=== PATIENT | male | born 1950 | race Caucasian/White ===

== ENCOUNTER 2017-12-08 06:04 | Day surgery (SDC) | payer MEDICARE ==
[2017-12-08] MEDS ORDERED: DIPRIVAN 200 MG/20 ML IV ONE (06:05)
[2017-12-08] MEDS ORDERED: Lactated Ringers 1,000 ML IV SCH (06:30)
--- NOTE | 2017-12-08 07:55 | OP ---
SURGERY DATE/TIME: 12/08/2017 0729 PREOPERATIVE DIAGNOSIS: Epigastric pain. POSTOPERATIVE DIAGNOSES: 1) Mild gastritis. 2) Leukoplakia of the vocal cords. PROCEDURE: Esophagogastroduodenoscopy with biopsy. SURGEON: Dr. Arias. ANESTHESIA: Medications were given by the anesthesia department. BRIEF HISTORY: The patient is a 67 year-old white male patient presenting now for endoscopic evaluation. He reports he has been having problems with abdominal pain which is now more epigastric in area. The patient is felt to need to have endoscopic evaluation. He was appraised of the risks of the procedure including the risk of perforation, phlebitis, untoward reaction to medication, bleeding and missed lesions. The patient verbalized his understanding and desired to have the procedure performed. DESCRIPTION OF PROCEDURE: The patient was given the medications by the anesthesia department. He had continuous pulse oximetry, ECG monitoring, intermittent blood pressure monitoring and tidal CO2 monitoring during the examination. He was placed in the left lateral decubitus position. A bite block was placed and the flexible Olympus gastroscope was used to intubate the oropharynx. A view of the larynx is obtained and showed an area of what appeared to be leukoplakia on the vocal cord and this is photo documented. The scope was easily introduced in the esophagus which appeared to be normal throughout its length. The stomach was entered where normal gastric rugal folds were seen and these distended nicely with insufflation of air. The scope was passed along the greater curvature of the stomach to the antrum. The pylorus was encountered and intubated. The duodenum was inspected and found to be normal. The scope is withdrawn towards the stomach. A retroflex view was obtained of the lesser curvature, fundus and cardia regions of the stomach and these appeared normal. The scope was then redirected towards the gastric antrum and biopsies were obtained to rule out the presence of Helicobacter pylori-type organisms. The scope was then removed from the patient who tolerated the procedure well and sent back to outpatient recovery in good condition.
[2017-12-08 08:27] VITALS: O2SAT 96
[2017-12-08 08:44] VITALS: BP 145/84; PULSE 61
== END 2017-12-08 08:45 | disposition home or self-care (01) ==
LOC: SDC 06:04
PROVIDERS: ATTEND Family Medicine
DX: K29.70 Gastritis, unspecified, without bleeding (principal); R10.13 Epigastric pain; J38.3 Other diseases of vocal cords
CPT/HCPCS: 88305; 88342; J2704

== ENCOUNTER 2017-12-15 10:43 | Inpatient (IN) | payer MEDICARE ==
[2017-12-15 11:52] LABS: BASOPHIL % 0.1 % (0.0-0.4); Basophil (Absolute #) 0.01 (0-0.4); Eosinophil (Absolute #) 0 (0-0.5); Granulocyte Absolute (ANC) 10.08 (1.4-6.9); Granulocytes % 94.2 % (36.0-66.0); Hematocrit 46.6 % (42-50); Hemoglobin 15.6 gm/dl (12.5-18.0); Lymphocyte (Absolute #) 0.28 (1.0-4.6); Lymphocytes % 2.6 % (24.0-44.0); Mean Cell Volume 95.9 fl (78-100); Mean Corpuscular Hemoglobin 32.1 pg (26-32); Mean Corpuscular Hgb Concent. 33.5 g/dl (32-36); Mean Platelet Volume 9.9 fl (6-9.5); Monocyte (Absolute #) 0.33 (0.0-1.3); Monocytes % 3.1 % (0.0-12.0); Platelet Count 201 K/mm3 (150-450); Red Blood Count 4.86 M/mm3 (4.1-5.6); Red Cell Distribution Width 13.9 % (11.5-14.0); White Blood Count 10.7 K/mm3 (4.0-10.5)
[2017-12-15] MEDS: TYLENOL EXTRA STRENGTH 500 MG PO PRN ×2 (12:00→16:13)
[2017-12-15] MEDS: D5W/0.45NS W/ 20mEq KCl 1000 ML 1,000 ML IV SCH ×2 (12:02→22:11)
[2017-12-15] MEDS: ROCEPHIN 1 Gm-D5w 50 ml Bag** 1 G/50 ML IVPB IV SCH (12:02)
[2017-12-15] MEDS: Zithromax 500 MG/ 250 ML NaCl Premix 500 MG/250 ML IVPB IV SCH (12:02)
--- NOTE | 2017-12-15 12:12 | XRAY ---
Indication: Chills. Flow symptoms. Comparison: November 02, 2011. PA/lateral chest remains hyperinflated and clear. Heart and mediastinal structures are stable and within normal limits again with left hilar calcified nodes. Bony thorax intact again with mild degenerative changes. Impression: Stable nonacute hyperinflated chest with chronic features.
[2017-12-15 12:25] LABS: ALBUMIN 4.2 g/dL (3.5-5.0); ALKALINE PHOSPHATASE 120 U/L (38-126); ANION GAP 14.4 MEQ/L (5-15); BLOOD UREA NITROGEN 18 mg/dL (9-20); CHLORIDE 103 mmol/L (98-107); Calcium 9.4 mg/dL (8.4-10.2); Carbon Dioxide 25 mmol/L (22-30); Creatinine 1 0.95 mg/dL (0.66-1.25); Glucose 113 mg/dL (74-106); Potassium 3.8 mmol/L (3.5-5.1); SGOT/AST 33 U/L (17-59); SGPT/ALT 24 U/L (0-50); SODIUM 138 mmol/L (137-145); Total Protein 7.7 g/dL (6.3-8.2)
[2017-12-15 13:06] LABS: INFLUENZA A NEGATIVE (NEGATIVE); INFLUENZA B NEGATIVE (NEGATIVE); RESPIRATORY SYNCTIAL VIRUS NEGATIVE (Negative)
[2017-12-15] MEDS: MOTRIN 600 MG PO PRN (13:55)
[2017-12-15] MEDS: Lotensin 10 MG PO SCH (15:17)
[2017-12-15] MEDS: Protonix 40MG Tablet PO SCH (15:17)
[2017-12-15 16:26] LABS: Appearance CLEAR (CLEAR); Leukocyte Esterase TRACE (NEGATIVE); Nitrite NEGATIVE (NEGATIVE); Specific Gravity 1.015 (1.005-1.025)
[2017-12-15 16:27] LABS: Bacteria MODERATE /HPF (NEGATIVE); Bilirubin NEGATIVE (NEGATIVE); Glucose NEGATIVE (NEGATIVE); Hyaline Casts 0-2 /LPF (0-2); Ketones MODERATE (NEGATIVE); Mucus MODERATE /HPF (NEGATIVE); Protein,Urine Dip TRACE (Negative); Urobilinogen NORMAL mg/dL (0-1); WBC 0-2 /HPF (0-5)
[2017-12-15] MEDS ORDERED: Nicoderm CQ 21 MG TOP SCH (17:30)
[2017-12-15] MEDS ORDERED: Ambien 5 MG Tablet PO PRN (19:27)
[2017-12-16] MEDS: D5W/0.45NS W/ 20mEq KCl 1000 ML 1,000 ML IV SCH ×2 (06:18→15:35)
[2017-12-16] MEDS: ROCEPHIN 1 Gm-D5w 50 ml Bag** 1 G/50 ML IVPB IV SCH (09:23)
[2017-12-16] MEDS: Lotensin 10 MG PO SCH (09:24)
[2017-12-16] MEDS: Protonix 40MG Tablet PO SCH (09:24)
--- NOTE | 2017-12-16 10:43 | PCM.NOTE ---
Date and Time: 12/16/17 1023 Subjective Assessment: He was seen yesterday in clinic by Dr. Elizondo for follow up on his EGD that was done 8 days ago. He did well initially but on after the egd on Monday developed chills and shakes on night and these resolved Monday before returning Monday morning and he was feeling weak and chilled and shaking and came to his appointment with Dr. Elizondo and was found to have temperature to 104 per patient and was sent for direct admission. He was given tylenol and motrin as well as ceftriaxone and azithromycin. HIs wbc was slightly elevated and blood cultures returned this am positive for gram negative rods. He has been feeling well and afebrile since arrival. He wants to go home. He has no urinary symptoms, abdominal pain now nausea or any skin lesions. He has no previous hospitalizations and has not had any recent food born illnesses suspected or tick bites. He does smoke 2 ppd and drinks significant amount of beer every day. He did have a headache with the chills on Monday but none since and no stiff neck with this. - Review of Systems Constitutional: Fever Eyes: No Symptoms Ears, Nose, & Throat: No Symptoms Respiratory: No Cough, No Short Of Breath Cardiac: No Chest Pain, No Edema, No Syncope Abdominal/Gastrointestinal: No Abdominal Pain, No Nausea, No Vomiting, No Diarrhea Genitourinary Symptoms: No Dysuria Musculoskeletal: No Back Pain, No Neck Pain Skin: No Rash Neurological: No Dizziness, No Focal Weakness, No Sensory Changes Psychological: No Symptoms Endocrine: No Symptoms Hematologic/Lymphatic: No Symptoms Immunological/Allergic: No Symptoms Objective Exam General Appearance: no apparent distress, alert Neurologic Exam: alert, oriented x 3, cooperative, normal mood/affect, nml cerebellar function, sensation nml, No motor deficits Skin Exam: normal color, warm, dry Eye Exam: PERRL, EOMI, eyes nml inspection Ears, Nose, Throat Exam: normal ENT inspection, pharynx normal, moist mucous membranes Neck Exam: normal inspection, non-tender, supple, full range of motion Respiratory Exam: normal breath sounds, lungs clear, No respiratory distress Cardiovascular Exam: regular rate/rhythm, normal heart sounds Gastrointestinal/Abdomen Exam: soft, No tenderness, No mass Extremity Exam: normal inspection, normal range of motion Back Exam: normal inspection, normal range of motion, No CVA tenderness, No vertebral tenderness Male Genitalia Exam: deferred Rectal Exam: deferred OBJECTIVE DATA Vital Signs: Vital Signs - 24 hr Temp Pulse Resp BP Pulse Ox 12/16/17 07:15 97.7 F 63 17 134/75 97 12/16/17 04:00 97.5 F 57 L 18 130/74 96 12/15/17 23:45 97.7 F 64 18 125/78 97 12/15/17 20:00 98.0 F 67 19 114/60 96 12/15/17 19:23 61 18 94 L 12/15/17 16:00 97.8 F 72 18 110/61 93 L 12/15/17 11:40 93 H 20 95 12/15/17 11:23 99.8 F 84 18 160/77 95 12/15/17 11:15 99.8 F 84 18 160/77 95 Pain Assessment - Last Documented Pain Scale Used 0-10 Pain Scale Intake and Output: Intake & Output 12/13/17 12/14/17 12/15/17 12/16/17 11:59 11:59 11:59 11:59 Intake Total 3242 Output Total 980 Balance 2262 Weight 71.7 kg Lab Results: Lab Results-Last 24 Hours 12/15/17 12/15/17 12/15/17 Range/Units 11:10 11:10 11:10 WBC 10.7 H (4.0-10.5) K/mm3 RBC 4.86 (4.1-5.6) M/mm3 Hgb 15.6 (12.5-18.0) gm/dl Hct 46.6 (42-50) % MCV 95.9 (78-100) fl MCH 32.1 H (26-32) pg MCHC 33.5 (32-36) g/dl RDW 13.9 (11.5-14.0) % Plt Count 201 (150-450) K/mm3 MPV 9.9 H (6-9.5) fl Gran % 94.2 H (36.0-66.0) % Eos # (Auto) 0 (0-0.5) Absolute Lymphs (auto) 0.28 L (1.0-4.6) Absolute Monos (auto) 0.33 (0.0-1.3) Lymphocytes % 2.6 L (24.0-44.0) % Monocytes % 3.1 (0.0-12.0) % Eosinophils % 0.0 (0.00-5.0) % Basophils % 0.1 (0.0-0.4) % Absolute Granulocytes 10.08 H (1.4-6.9) Basophils # 0.01 (0-0.4) Sodium (137-145) mmol/L Potassium (3.5-5.1) mmol/L Chloride (98-107) mmol/L Carbon Dioxide (22-30) mmol/L Anion Gap (5-15) MEQ/L BUN (9-20) mg/dL Creatinine (0.66-1.25) mg/dL Estimated GFR ML/MIN Glucose (74-106) mg/dL Lactic Acid (0.4-2.0) Calcium (8.4-10.2) mg/dL Total Bilirubin (0.2-1.3) mg/dL AST (17-59) U/L ALT (0-50) U/L Alkaline Phosphatase (38-126) U/L Serum Total Protein (6.3-8.2) g/dL Albumin (3.5-5.0) g/dL Ur Collection Type Urine Color (YELLOW) Urine Appearance (CLEAR) Urine pH (5-6) Ur Specific [place] (1.005-1.025) Urine Protein (Negative) Urine Ketones (NEGATIVE) Urine Blood (0-5) Georges/ul Urine Nitrite (NEGATIVE) Urine Bilirubin (NEGATIVE) Urine Urobilinogen (0-1) mg/dL Ur Leukocyte Esterase (NEGATIVE) Urine Microscopic RBC (0-2) /HPF Urine Microscopic WBC (0-5) /HPF Urine Bacteria (NEGATIVE) /HPF Hyaline Casts (0-2) /LPF Urine Mucus (NEGATIVE) /HPF Urine Glucose (NEGATIVE) mg/dL Influenza Type A Ag NEGATIVE (NEGATIVE) Influenza Type B Ag NEGATIVE (NEGATIVE) RSV (PCR) NEGATIVE (Negative) Streptococcus Screen NEGATIVE (Negative) Slides for Path Review Specimen Received 12/15/17 12/15/17 12/15/17 Range/Units 11:15 11:25 11:50 WBC (4.0-10.5) K/mm3 RBC (4.1-5.6) M/mm3 Hgb (12.5-18.0) gm/dl Hct (42-50) % MCV (78-100) fl MCH (26-32) pg MCHC (32-36) g/dl RDW (11.5-14.0) % Plt Count (150-450) K/mm3 MPV (6-9.5) fl Gran % (36.0-66.0) % Eos # (Auto) (0-0.5) Absolute Lymphs (auto) (1.0-4.6) Absolute Monos (auto) (0.0-1.3) Lymphocytes % (24.0-44.0) % Monocytes % (0.0-12.0) % Eosinophils % (0.00-5.0) % Basophils % (0.0-0.4) % Absolute Granulocytes (1.4-6.9) Basophils # (0-0.4) Sodium 138 (137-145) mmol/L Potassium 3.8 (3.5-5.1) mmol/L Chloride 103 (98-107) mmol/L Carbon Dioxide 25 (22-30) mmol/L Anion Gap 14.4 (5-15) MEQ/L BUN 18 (9-20) mg/dL Creatinine 0.95 (0.66-1.25) mg/dL Estimated GFR > 60.0 ML/MIN Glucose 113 H (74-106) mg/dL Lactic Acid 1.5 (0.4-2.0) Calcium 9.4 (8.4-10.2) mg/dL Total Bilirubin 0.90 (0.2-1.3) mg/dL AST 33 (17-59) U/L ALT 24 (0-50) U/L Alkaline Phosphatase 120 (38-126) U/L Serum Total Protein 7.7 (6.3-8.2) g/dL Albumin 4.2 (3.5-5.0) g/dL Ur Collection Type CLEAN CATCH Urine Color YELLOW (YELLOW) Urine Appearance CLEAR (CLEAR) Urine pH 5.0 (5-6) Ur Specific [place] 1.015 (1.005-1.025) Urine Protein TRACE (Negative) Urine Ketones MODERATE (NEGATIVE) Urine Blood 5-10 (0-5) Georges/ul Urine Nitrite NEGATIVE (NEGATIVE) Urine Bilirubin NEGATIVE (NEGATIVE) Urine Urobilinogen NORMAL (0-1) mg/dL Ur Leukocyte Esterase TRACE (NEGATIVE) Urine Microscopic RBC 2-5 (0-2) /HPF Urine Microscopic WBC 0-2 (0-5) /HPF Urine Bacteria MODERATE (NEGATIVE) /HPF Hyaline Casts 0-2 (0-2) /LPF Urine Mucus MODERATE (NEGATIVE) /HPF Urine Glucose NEGATIVE (NEGATIVE) mg/dL Influenza Type A Ag (NEGATIVE) Influenza Type B Ag (NEGATIVE) RSV (PCR) (Negative) Streptococcus Screen (Negative) Slides for Path Review Specimen Received 12/15/17 1620 Radiology Exams: Radiology Procedures Category Date Time Status CHEST 2 VIEWS (PA AND LAT) Routine Exams 12/15/17 11:41 Completed Assessment/Plan (1) Bacteremia Status: Acute Assessment & Plan: he is feeling well today and his physical exam is unremarkable. source of gram negative bacteremia is unclear but currently asymptomatic will continue iv antibiotics and await identification of organism and pursue further evaluation to source pending ID Code(s): R78.81 - BACTEREMIA (2) Tobacco dependence Status: Acute Assessment & Plan: encouraged cessation treated with nicotine patch while here Code(s): F17.200 - NICOTINE DEPENDENCE, UNSPECIFIED, UNCOMPLICATED (3) History of heavy alcohol consumption Status: Acute Assessment & Plan: use of prn alprazolam while inpatient to help prevent his cravings and potential withdrawal symptoms Code(s): Z87.898 - PERSONAL HISTORY OF OTHER SPECIFIED CONDITIONS
[2017-12-16] MEDS ORDERED: xanAX 0.5 MG PO PRN (10:47)
[2017-12-16] MEDS ORDERED: Nicoderm CQ 21 MG TOP SCH (10:54)
[2017-12-16] MEDS: Zithromax 500 MG/ 250 ML NaCl Premix 500 MG/250 ML IVPB IV SCH (10:59)
[2017-12-16] MEDS ORDERED: MELATONIN 1 MG PO PRN (16:25)
[2017-12-16] MEDS: PATIENT OWN MEDICATION PO PRN ×2 (17:19→20:19)
[2017-12-16] MEDS: MOTRIN 600 MG PO PRN (23:21)
[2017-12-17] MEDS: D5W/0.45NS W/ 20mEq KCl 1000 ML 1,000 ML IV SCH (00:16)
[2017-12-17 06:58] VITALS: O2SAT 94
[2017-12-17] MEDS: Zithromax 500 MG/ 250 ML NaCl Premix 500 MG/250 ML IVPB IV SCH (09:40)
[2017-12-17] MEDS: Lotensin 10 MG PO SCH (09:40)
[2017-12-17] MEDS: Protonix 40MG Tablet PO SCH (09:40)
--- NOTE | 2017-12-17 10:47 | PCM.DCORD ---
- Discharge Discharge Date: 12/17/17 Disposition: Home, Self-Care Condition: Stable Prescriptions: New Levofloxacin [Levaquin] 500 mg PO 14 #14 tablet Continue Pantoprazole Sodium [Protonix] 40 mg PO DAILY Benazepril HCl 10 mg [Lotensin 10 MG] 10 mg PO DAILY Additional Instructions: My office will be calling him to schedule his CT of his abdomen and pelvis ok to d/c home after Rocephin Follow up with: JALEESA SWANN [Primary Care Provider] - 1 Week
[2017-12-17] MEDS: ROCEPHIN 1 Gm-D5w 50 ml Bag** 1 G/50 ML IVPB IV SCH (10:57)
[2017-12-17 11:38] VITALS: BP 138/65; PULSE 80
--- NOTE | 2017-12-17 17:26 | PCM.DS ---
Discharge Summary Date of Admission: 12/16/17 10:48 Date of Discharge: 12/17/17 Admitting Physician: JALEESA ARIAS Primary Care Provider: JALEESA ARIAS Allergies Allergies Sulfa (Sulfonamide Antibiotics) [Sulfa(Sulfonamide Antibiotics)] Allergy ( Verified 12/07/17 15:01) Hospital Summary - Hospital Course Hospital Course: He was admitted from the clinic by Dr. Arias where he was being seen for follow up on his EGD that was done 7 days prior to presentation, but was found to have a high fever and chills at the appointment. He did well initially after the egd on Monday but then developed chills and shakes on Monday night and these resolved Monday before returning Monday morning and he was feeling weak and chilled and shaking and came to his appointment with Dr. Arias and was found to have temperature to 104 per patient and was sent for direct admission. He was given Tylenol and motrin as well as ceftriaxone and azithromycin. His fever resolved after the initial and he remained afebrile for >48 hours. His wbc was slightly elevated and blood cultures returned positive for pansensitive e. coli. He has been feeling well and afebrile since arrival. He wants to go home. He has no heart murmur, urinary symptoms, abdominal pain, diarrhea, nausea or any skin lesions. He has no previous hospitalizations and has not had any recent food born illnesses suspected or tick bites. He does smoke 2 ppd and drinks significant amount of beer every day. We discussed further evaluation for source of infection and recommend abd/pelvis CT with contrast to rule out occult abscess but he prefers to have this done as an outpatient as he states it will be cheaper for him this way. Given he has clinically been well since arrival this will be arranged and will d/c home on levaquin for the E. coli for 14 day coarse pending evaluation for the source. - Vitals & Intake/Output Vital Signs: Vital Signs Temperature 97.7 F 12/17/17 11:37 Pulse Rate 80 12/17/17 11:37 Respiratory Rate 18 12/17/17 11:37 Blood Pressure 138/65 12/17/17 11:37 O2 Sat by Pulse Oximetry 94 L 12/17/17 11:37 Intake & Output: Intake & Output 12/15/17 12/16/17 12/17/17 12/18/17 11:59 11:59 11:59 11:59 Intake Total 1116 6242 973 Output Total 723 600 Balance 6861 6101 973 Weight 71.7 kg - Lab Result Diagrams: 12/15/17 11:10 12/15/17 11:50 Lab Results-Last 24 Hrs: Lab Results-Last 24 Hours 12/15/17 12/15/17 Range/Units 11:25 11:50 Sodium 138 (137-145) mmol/L Potassium 3.8 (3.5-5.1) mmol/L Chloride 103 (98-107) mmol/L Carbon Dioxide 25 (22-30) mmol/L Anion Gap 14.4 (5-15) MEQ/L BUN 18 (9-20) mg/dL Creatinine 0.95 (0.66-1.25) mg/dL Estimated GFR > 60.0 ML/MIN Glucose 113 H (74-106) mg/dL Lactic Acid 1.5 (0.4-2.0) Calcium 9.4 (8.4-10.2) mg/dL Total Bilirubin 0.90 (0.2-1.3) mg/dL AST 33 (17-59) U/L ALT 24 (0-50) U/L Alkaline Phosphatase 120 (38-126) U/L Serum Total Protein 7.7 (6.3-8.2) g/dL Albumin 4.2 (3.5-5.0) g/dL Micro Results-Entire Visit: Microbiology 12/15/17 11:10 Throat Culture - Final Throat BETA STREP ISOLATED, NOT GROUP A. 12/15/17 11:50 Blood Culture Gram Stain - Final Blood Blood Culture - Final SEE PREVIOUS CULTURE FOR IDENTIFICATION AND SENSITIVITY. 12/15/17 11:50 Blood Culture Gram Stain - Final Blood Blood Culture - Final Escherichia Coli - Procedures and Test Procedures and Tests throughout Hospitalization: Therapy Orders & Screens 12/15/17 11:40 Smoking Cessation Education ONCE Comment: Diagnosis: Fever unknown origin, chills Smoking Status: Heavy tobacco smoker How long have you smoked: 55 years Have you smoked in the past 12 months: Yes Approximately how many cigarettes per day: 44 Do you dip or chew tobacco: No Discharge Exam General Appearance: no apparent distress, alert Neurologic Exam: alert, oriented x 3, cooperative, normal mood/affect, nml cerebellar function, sensation nml, No motor deficits Skin Exam: normal color, warm, dry, No rash, No petechiae, No jaundice, No embolic lesions, No ecchymosis, No jaundice Eye Exam: PERRL, EOMI, eyes nml inspection Ears, Nose, Throat Exam: normal ENT inspection, pharynx normal, moist mucous membranes Neck Exam: normal inspection, non-tender, supple, full range of motion Respiratory Exam: normal breath sounds, lungs clear, No respiratory distress Cardiovascular Exam: regular rate/rhythm, normal heart sounds Gastrointestinal/Abdomen Exam: soft, No tenderness, No mass Extremity Exam: normal inspection, normal range of motion Back Exam: normal inspection, normal range of motion, No CVA tenderness, No vertebral tenderness Male Genitalia Exam: deferred Rectal Exam: deferred Final Diagnosis/Problem List - Final Discharge Diagnosis/Problem (1) E coli bacteremia Status: Acute (2) Tobacco dependence Status: Acute (3) History of heavy alcohol consumption Status: Acute - Discharge Discharge Date: 12/17/17 Disposition: Home, Self-Care Condition: Stable Prescriptions: New Levofloxacin [Levaquin] 500 mg PO 14 #14 tablet Continue Pantoprazole Sodium [Protonix] 40 mg PO DAILY Benazepril HCl 10 mg [Lotensin 10 MG] 10 mg PO DAILY Instructions: Sepsis in Adults Additional Instructions: My office will be calling him to schedule his CT of his abdomen and pelvis ok to d/c home after Rocephin Follow up with: JALEESA ARIAS [Primary Care Provider] - 1 Week Forms: Discharge Instructions
== END 2017-12-17 12:00 | disposition home or self-care (01) | DRG 872 ==
LOC: MED SURG 10:48 → OBSVTOIN 12-16 10:48
PROVIDERS: ADMIT Family Medicine; ATTEND Family Medicine
DX: R78.81 Bacteremia (principal); B96.20 Unspecified Escherichia coli [E. coli] as the cause of diseases classified elsewhere; F17.200 Nicotine dependence, unspecified, uncomplicated; Z87.898 Personal history of other specified conditions; Z79.899 Other long term (current) drug therapy
CPT/HCPCS: 36415; 71046; 80053; 81000; 83605; 85025; 87040; 87070; 87077; 87186; 87430; 87631; 94760; G0378; J0456; J0696; A9270-GY

== ENCOUNTER 2020-09-18 15:19 | Emergency (ER) | payer MEDICARE, OTHER ==
[2020-09-18 15:34] VITALS: BP 139/75; PULSE 77; O2SAT 98
--- NOTE | 2020-09-18 15:55 | ERPHSYRPT ---
- History of Present Illness Time Seen by Provider: 09/18/20 15:28 Source: patient Exam Limitations: no limitations Patient Subjective Stated Complaint: Pt had a laser surgery on the prostate yesterday and a barreto was placed and was told to remove it today, pt removed it and has been unable to urinate since Triage Nursing Assessment: Pt was brought to the ER by his , travis gil, rates pain 8/10, unable to urinate since this AM, no other issues at this time Physician History: 69 years old status post TURP laser prostatectomy yesterday presented in the ER with urinary retention. Patient report he removed his catheter placed and while surgery yesterday at this morning and since then he is unable to go. Complaining of dull aching to sharp pain in the suprapubic area, arch to go but cannot. Called his urologist who recommended coming to ER and have another Barreto catheter placed in. He is currently on antibiotics. Timing/Duration: today, sudden, worse Activites at Onset: rest Quality: sharpness Onset Location: suprapubic Pain Radiation: none Severity of Pain-Max: moderate Severity of Pain-Current: moderate Modifying Factors: Worsens With: movement, palpation Associated Symptoms: denies symptoms Prior abdominal problems: none Sexual intercourse history: non-contributory Allergies/Adverse Reactions: levofloxacin [From Levaquin] Allergy (Verified 09/18/20 15:35) prednisone Allergy (Verified 09/18/20 15:35) Sulfa (Sulfonamide Antibiotics) [Sulfa(Sulfonamide Antibiotics)] Allergy (Verified 09/18/20 15:35) Home Medications: Pantoprazole Sodium [Protonix] 40 mg PO DAILY 11/10/11 [History] Benazepril HCl 10 mg [Lotensin 10 MG] 20 mg PO DAILY 12/07/17 [History] Amlodipine Besylate 5 mg [Norvasc 5 mg] 5 mg PO DAILY 09/18/20 [History] Montelukast Sodium 10 mg [Singulair 10 MG] 10 mg PO DAILY 09/18/20 [History] Travel Risk - International Travel Have you traveled outside of the country in past 3 weeks: No - Coronavirus Screening Are you exhibiting any of the following symptoms?: No Close contact with a COVID-19 positive Pt in past 14-21 Days: No - Past Medical History Pertinent Past Medical History: Yes Neurological History: Migraines ENT History: No Pertinent History Cardiac History: Hypertension Respiratory History: COPD, Pneumonia, Other Endocrine Medical History: No Pertinent History Musculoskeletal History: Fibromyalgia, Osteoarthritis GI Medical History: GERD, Hemorrhoids, Irritable Bowel History: No Pertinent History Psycho-Social History: No Pertinent History Male Reproductive Disorders: No Pertinent History - Past Surgical History Past Surgical History: Yes Neuro Surgical History: No Pertinent History Cardiac: No Pertinent History Respiratory: No Pertinent History Gastrointestinal: Hernia Repair, Other Genitourinary: No Pertinent History Musculoskeletal: Other Male Surgical History: No Pertinent History Other Surgical History: left thumb repair. hx upper gi x1. benign tumor removed from left neck - Social History Smoking Status: Heavy tobacco smoker How long have you smoked: 55 years Exposure to second hand smoke: Yes Drug Use: none Patient Lives Alone: No - Review of Systems Constitutional: No Symptoms Eyes: No Symptoms Ears, Nose, & Throat: No Symptoms Respiratory: No Symptoms Cardiac: No Symptoms Abdominal/Gastrointestinal: Abdominal Pain Genitourinary Symptoms: Urinary Retention Musculoskeletal: No Symptoms Skin: No Symptoms Neurological: No Symptoms Psychological: No Symptoms Endocrine: No Symptoms - Nursing Vital Signs Nursing Vital Signs: Initial Vital Signs Temperature 97.7 F 09/18/20 15:26 Pulse Rate 77 09/18/20 15:26 Blood Pressure 139/75 09/18/20 15:26 O2 Sat by Pulse Oximetry 98 09/18/20 15:26 Pain Scale Pain Intensity 8 - Physical Exam General Appearance: no apparent distress, alert Eye Exam: eyes nml inspection Ears, Nose, Throat Exam: pharynx normal Neck Exam: normal inspection, supple, full range of motion Respiratory Exam: normal breath sounds, lungs clear Cardiovascular Exam: regular rate/rhythm, normal heart sounds Gastrointestinal/Abdomen Exam: soft, normal bowel sounds, tenderness (Suprapubic area with palpable bladder) Male Genital Exam: normal genitalia, No scrotum tenderness (R), No scrotum tenderness (L), No testicular tenderness (R), No testicular tenderness (L), No urethral discharge, No circumcised Back Exam: normal inspection Extremity Exam: normal inspection Neurologic Exam: alert, oriented x 3, cooperative Skin Exam: normal color SpO2 Interpretation: normal SpO2: 98 O2 Delivery: Room Air Ordered Tests: Active Orders 24 hr Category Date Time Status Barreto [Catheter-[place] Barreto] STAT Care 09/18/20 15:40 Active - Progress Progress: improved Progress Note: 09/18/20 15:54 Barreto catheter is placed in with drainage of urine and patient has immediate relief of pain. Will leave catheter in place and patient is advised to call his urologist and go per his recommendations. Counseled pt/family regarding: lab results, diagnosis, need for follow-up - Departure Departure Disposition: Home Clinical Impression: Postoperative urinary retention Condition: Stable Critical Care Time: No Referrals: JALEESA SWANN [Primary Care Provider] - Follow Up with PCP/3 days Instructions: Urinary Retention (DC) Additional Instructions: Call your urologist and follow his recommendation for catheter removal. Take Tylenol as needed for pain. Return to ER if has difficulty drainage of urine again.
== END 2020-09-18 16:14 | disposition home or self-care (01) ==
LOC: ED 15:19
DX: R33.8 Other retention of urine (principal); Z98.890 Other specified postprocedural states
CPT/HCPCS: 51702; 99284

== ENCOUNTER 2023-03-16 06:33 | Day surgery (SDC) | payer MEDICARE ==
--- NOTE | 2023-03-09 11:57 | HP ---
DATE OF SURGERY: 03/16/2023 HISTORY OF PRESENT ILLNESS: The patient is a 72-year-old male presented with some gallbladder attacks. Symptoms have lasted up to two to three days at a time. He has been experiencing more frequent attacks. He did change his diet a little bit and it helped some. It looked like he had some stones on his ultrasound. PAST MEDICAL HISTORY: Hypertension, heart disease, asthma, glaucoma, fibromyalgia. PAST SURGICAL HISTORY: Hernia repair. Lipoma removal. ALLERGIES: BETA-ELIA. LEVAQUIN. SULFA. PREDNISONE. MEDICATIONS: Latanoprost, Pepcid, amlodipine, Benazepril, Singulair, albuterol, naproxen. FAMILY HISTORY: None reported. SOCIAL HISTORY: Current every day smoker. REVIEW OF SYSTEMS: CONSTITUTIONAL: Denies fever or chills. CHEST: Denies shortness of breath. CVS: Denies chest pain. ABDOMEN: Reports abdominal pain. PHYSICAL EXAMINATION: GENERAL: No acute distress. CHEST: Nonlabored. No shortness of breath. CVS: Regular rate and rhythm. ABDOMEN: Soft. IMPRESSION: Chronic cholecystitis with sludge. PLAN: Laparoscopic cholecystectomy with Dr. Nilo Mathur. As dictated by Chloe Ford NP.
[2023-03-16] MEDS ORDERED: Sensorcaine 0.25% 10 ML ONE (06:34)
[2023-03-16] MEDS ORDERED: Lactated Ringers 1,000 ML IV SCH (07:00)
[2023-03-16] MEDS ORDERED: MEFOXIN 2 GM PREMIX** 2 GM/50 ML ML IV SCH (07:00)
[2023-03-16 07:34] VITALS: RESP 18
[2023-03-16] MEDS ORDERED: DIPRIVAN 200 MG/20 ML IV ONE (08:00)
[2023-03-16] MEDS ORDERED: Xylocaine-Mpf 2% 5 Ml Vial ONE (08:01)
[2023-03-16] MEDS ORDERED: SUBLIMAZE 100 MCG/2 ML ONE ×2 (08:09→08:13)
[2023-03-16] MEDS ORDERED: Decadron 4 MG INJ ONE (09:10)
[2023-03-16] MEDS ORDERED: Ephedrine Sulfate 50 MG/ML ONE (09:10)
[2023-03-16] MEDS ORDERED: Zofran 4 MG/2 ML VIAL ONE (09:10)
[2023-03-16] MEDS ORDERED: BRIDION 200MG/2ML IV ONE (09:10)
[2023-03-16] MEDS ORDERED: TORAdol 30 mg Injection ONE (09:32)
[2023-03-16 09:45] LABS: ALBUMIN 3.6 g/dL (3.5-5.0); ALKALINE PHOSPHATASE 166 U/L (38-126); ANION GAP 8.5 MEQ/L (5-15); BLOOD UREA NITROGEN 21 mg/dL (9-20); CHLORIDE 107 mmol/L (98-107); Calcium 8.4 mg/dL (8.4-10.2); Carbon Dioxide 28 mmol/L (22-30); Creatinine 1 0.88 mg/dL (0.66-1.25); EST GLOMERULAR FILTRATION RATE > 60.0 ML/MIN; Glucose 94 mg/dL (74-106); Potassium 4.1 mmol/L (3.5-5.1); SGOT/AST 54 U/L (17-59); SGPT/ALT 72 U/L (0-50); SODIUM 140 mmol/L (137-145)
[2023-03-16] MEDS ORDERED: NORCO 5/325 MG PO PRN (11:07)
[2023-03-16 11:48] VITALS: BP 129/72; PULSE 68; TEMP 98.3; O2SAT 97
--- NOTE | 2023-03-16 11:48 | OP ---
SURGERY DATE/TIME: 03/16/202315 PREOPERATIVE DIAGNOSIS: Symptomatic stones. POSTOPERATIVE DIAGNOSIS: Symptomatic stones. PROCEDURE: Laparoscopic cholecystectomy. SURGEON: Dr. Nilo Mathur. HUMANITIES AND LANGUAGES PROFESSOR: Aguila Meeks M.D., [facility] Resident. ANESTHESIA: General. ESTIMATED BLOOD LOSS: None. DRAINS: None. COMPLICATIONS: 50 cc. CONDITION: Stable. INDICATIONS: A patient with symptomatic gallbladder disease. DESCRIPTION OF PROCEDURE AND FINDINGS: Taken to surgery. General anesthetic, routine prep and drape. Veress needle right upper quadrant. Opening pressure -1, insufflating pressure 14. Four - 4's, four - 5's originally. The gallbladder is very large, very dilated and the cystic duct was very long and very dilated. It was about 6 to 7 mm and it was dissected back to the common bile duct. The entire pedicle, the artery and the ducts were hanging in the breeze but this time pulled out about 1.5 inch segment. The cystic artery was taken with a 10 mm clip, two medial and one superiorly letting the tension off the gallbladder. It was dissected. It was going towards the common bile duct and it was clipped above this with three - 10 clips. Gallbladder completely out of the gallbladder fossa. The 5 port had been changed to a 10 port with 10 clipper. A hole closure device was used here. The field was totally dry. CO2 exsufflated. Skin closed with mariposa. Sterile dressing applied. The patient tolerated the procedure satisfactorily.
== END 2023-03-16 11:35 | disposition home or self-care (01) ==
LOC: SDC 06:33
PROVIDERS: ATTEND Surgery
DX: K80.20 Calculus of gallbladder without cholecystitis without obstruction (principal)
CPT/HCPCS: 36415; 80053; 93005; J0694; J1100; J1885; J2405; J2704; J3010; A9270-GY

== ENCOUNTER 2023-07-06 08:25 | Day surgery (SDC) | payer MEDICARE ==
--- NOTE | 2023-06-07 14:09 | HP ---
DATE OF SURGERY: 06/08/2023 HISTORY OF PRESENT ILLNESS: The patient is a 72-year-old male who recently underwent laparoscopic cholecystectomy. He was doing fine. He does have a small left inguinal hernia that is soft and reducible. He would like to have this fixed. PAST MEDICAL HISTORY: Hypertension, allergic rhinitis, chronic obstructive pulmonary disease, asthma, glaucoma. PAST SURGICAL HISTORY: Lipoma removal. Hernia repair. Cholecystectomy. ALLERGIES: BETA-BLOCKERS. LEVAQUIN. PREDNISONE. SULFA. MEDICATIONS: Naproxen, albuterol, Singulair, benazepril, amlodipine, Pepcid, Latanoprost eye drops. FAMILY HISTORY: Negative. SOCIAL HISTORY: Current smoker. REVIEW OF SYSTEMS: CONSTITUTIONAL: Denies fever or chills. CHEST: Denies shortness of breath. CVS: Denies chest pain. ABDOMEN: Reports left inguinal hernia pain. PHYSICAL EXAMINATION: GENERAL: No acute distress. CHEST: Nonlabored. No shortness of breath. CVS: Regular rate and rhythm. ABDOMEN: Soft, small reducible left inguinal hernia. IMPRESSION: Small, soft reducible left inguinal hernia. PLAN: Left inguinal hernia repair with possible mesh with Dr. Nilo Mathur. As dictated by Chloe Ford NP.
[~2023-07-06 08:25] MED LIST: CEFAZOLIN 2 GM-D5W BAG** 2 GM/50 ML ML IV ONE; Lactated Ringers 1,000 ML IV ONE; Sensorcaine 0.25% 10 ML ONE
[2023-07-06] MEDS ORDERED: Lactated Ringers 1,000 ML IV SCH (08:30)
[2023-07-06] MEDS ORDERED: CEFAZOLIN 2 GM-D5W BAG** 2 GM/50 ML ML IV SCH (08:30)
[2023-07-06 08:51] VITALS: RESP 18
[2023-07-06] MEDS ORDERED: DIPRIVAN 200 MG/20 ML IV ONE (09:40)
[2023-07-06] MEDS ORDERED: TORAdol 30 mg Injection ONE (09:42)
[2023-07-06] MEDS ORDERED: Decadron 4 MG INJ ONE (09:42)
[2023-07-06] MEDS ORDERED: BRIDION 200MG/2ML IV ONE (09:42)
[2023-07-06] MEDS ORDERED: Zemuron 100 MG/10 ML ONE (09:42)
[2023-07-06] MEDS ORDERED: SUBLIMAZE 100 MCG/2 ML ONE (09:42)
[2023-07-06] MEDS ORDERED: Xylocaine-Mpf 2% 5 Ml Vial ONE (09:42)
[2023-07-06] MEDS ORDERED: Zofran 4 MG/2 ML VIAL ONE (09:42)
[2023-07-06] MEDS ORDERED: Ephedrine Sulfate 50 MG/ML ONE (10:19)
[2023-07-06 11:34] VITALS: O2SAT 95
[2023-07-06 12:00] VITALS: BP 132/73; PULSE 68; TEMP 97.9
--- NOTE | 2023-07-06 12:25 | OP ---
SURGERY DATE/TIME: 07/06/2023 0947 PREOPERATIVE DIAGNOSIS: Left inguinal hernia. POSTOPERATIVE DIAGNOSES: 1) Left inguinal hernia direct primary repair. 2) Resection of lipoma of the cord. PROCEDURE: Left inguinal herniorrhaphy with mesh. SURGEON: Nilo Mathur M.D. ANESTHESIA: General. COMPLICATIONS: None. CONDITION: Stable. INDICATION: The patient presents with symptomatic left inguinal hernia. DESCRIPTION OF PROCEDURE: Marked preoperatively. Taken to surgery. Time out performed. 0.25% Marcaine. Curvilinear incision. External oblique opened. Cord skeletonized. The lipoma of the cord was removed. It was about 4 inches long and sent as specimen. The hernia was direct. It was invaginated in. It was primarily repaired in a 's ligament-type fashion with sutures of 0 Prolene. Excellent repair was present. A small relaxed incision 1 cm was made close to but not in the midline this looked excellent. It was closed with2-0 Vicryl, 3-0 Vicryl and 4-0 Vicryl and Steri-Strips. The patient tolerated the procedure satisfactorily.
== END 2023-07-06 12:06 | disposition home or self-care (01) ==
LOC: SDC 08:25
PROVIDERS: ATTEND Surgery
DX: K40.90 Unilateral inguinal hernia, without obstruction or gangrene, not specified as recurrent (principal)
CPT/HCPCS: J0690; J1100; J1885; J2405; J2704; J3010

== ENCOUNTER 2023-10-24 05:56 | Day surgery (SDC) | payer MEDICARE ==
[2023-10-24] MEDS: Lactated Ringers 1,000 ML IV SCH (06:54)
[2023-10-24 07:11] LABS: Absolute Neutrophil Ct (ANC) 4.33 x10^3/uL (1.4-6.9); BASOPHIL % 0.2 % (0.0-0.4); Basophil (Absolute #) 0.01 x10^3/uL (0-0.4); Eosinophil % 1.7 % (0.00-5.0); Hematocrit 38.5 % (42-50); Hemoglobin 12.6 g/dL (12.5-18.0); IMMATURE GRAN # 0.01 x10^3u/L (0.00-0.03); IMMATURE GRAN % 0.2 % (0.00-0.4); Lymphocyte (Absolute #) 0.76 x10^3/uL (1.0-4.6); Lymphocytes % 12.9 % (24.0-44.0); Mean Corpuscular Hemoglobin 31.7 pg (26-32); Mean Corpuscular Hgb Concent. 32.7 g/dL (32-36); Mean Platelet Volume 9.4 fL (7.5-11.0); Monocyte (Absolute #) 0.66 x10^3/uL (0.0-1.3); Monocytes % 11.2 % (0.0-12.0); Neutrophil % 73.8 % (36.0-66.0); Platelet Count 182 x10^3/uL (150-450); Red Blood Count 3.97 x10^6/uL (4.1-5.6); Red Cell Distribution Width 13.9 % (11.5-14.0); White Blood Count 5.9 x10^3/uL (4.0-10.5)
[2023-10-24 07:24] LABS: ALBUMIN 3.3 g/dL (3.5-5.0); ANION GAP 6.4 MEQ/L (5-15); Calcium 8.6 mg/dL (8.4-10.2); Creatinine 1 0.81 mg/dL (0.66-1.25); EST GLOMERULAR FILTRATION RATE 93.1 ML/MIN; Potassium 3.6 mmol/L (3.5-5.1)
[2023-10-24] MEDS ORDERED: DIPRIVAN 200 MG/20 ML IV ONE ×2 (07:51→08:16)
[2023-10-24] MEDS ORDERED: Xylocaine-Mpf 2% 5 Ml Vial ONE (07:51)
[2023-10-24] MEDS ORDERED: SUBLIMAZE 100 MCG/2 ML ONE (08:22)
[2023-10-24 09:33] VITALS: TEMP 98.7; O2SAT 95
[2023-10-24 09:46] VITALS: BP 150/77; PULSE 57; RESP 18
--- NOTE | 2023-10-24 10:29 | OP ---
SURGERY DATE: 10/24/2023 SURGERY TIME: 802 PREOPERATIVE DIAGNOSIS: 1. SCREENING EXAM. POSTOPERATIVE DIAGNOSIS: 1. EXTERNAL HEMORRHOID. 2. SIGMOID DIVERTICULOSIS. PROCEDURE: 1. Colonoscopy. SURGEON: Dr. Arias. ANESTHESIA: MAC. Medications given by the Anesthesia Department. BRIEF HISTORY: The patient is a 72 year-old WM patient presenting now for screening colonoscopy. The patient was appraised of the risks of the procedure including the risk of perforation, phlebitis, untoward reaction to medication, bleeding, and missed lesions. The patient verbalized his understanding and desired to have the procedure performed. DESCRIPTION OF PROCEDURE: The patient was given the medications by the Anesthesia Department. He had continuous pulse oximetry, ECG monitoring, and intermittent BP monitoring during the examination. He was placed in the left lateral decubitus position. A digital rectal examination was performed and revealed external hemorrhoid that was somewhat inflamed and irritated. No active bleeding was noted. Anal sphincter tone was normal. No masses and the prostate was felt to be normal. The flexible pediatric colonoscope was used to intubate the rectum. A view of the colon was developed sequentially to the cecum. Upon insertion and withdrawal, including a retroflex view in the rectum, was noted to be sigmoid diverticulosis. No other mucosal lesions being encountered, the scope was then removed from the patient who tolerated the procedure well and was sent back to OP recovery in good condition. The prep was noted to be fair.
== END 2023-10-24 10:08 | disposition home or self-care (01) ==
LOC: SDC 05:56
PROVIDERS: ATTEND Family Medicine
DX: Z12.11 Encounter for screening for malignant neoplasm of colon (principal); K64.4 Residual hemorrhoidal skin tags; K57.30 Diverticulosis of large intestine without perforation or abscess without bleeding; I10 Essential (primary) hypertension
CPT/HCPCS: 36415; 80053; 85025; 93005; G0121; 99100; J2704; J3010